=== PATIENT | male | born 1970 | race Caucasian/White ===

== ENCOUNTER 2018-07-04 14:11 | Emergency (ER) | payer OTHER ==
[2018-07-04 15:54] VITALS: BP 151/90
[2018-07-04] MEDS ORDERED: Lidocaine 1%* 5 ML VIAL INJ ONE (16:05)
[2018-07-04] MEDS ORDERED: Tetan/Diph/Pertus SYR(Tdap)* 0.5 ML SYR(BOOSTRIX) use SYR IM ONE (16:07)
--- NOTE | 2018-07-04 16:11 | UC ---
Skin Complaint HPI - HPI Summary HPI Summary: 48-year-old male comes in with a chief complaint of laceration of the right hand. This happened today just prior to arrival at work. Patient was using a utility knife trying to cut something he slipped and poked through his gloves into his right hand in the webbing between the thumb and first finger. He is able stop the bleeding with direct pressure. He is not up-to-date on his tetanus shot. He has no weakness or numbness. He has full range of motion of the hand. - History of Current Complaint Chief Complaint: UCLaceration Time Seen by Provider: 07/04/18 16:01 Stated Complaint: WC - RIGHT HAND LACERACTION Pain Intensity: 0 - Allergy/Home Medications Allergies/Adverse Reactions: Allergies Allergy/AdvReac Type Severity Reaction Status Date / Time No Known Allergies Allergy Verified 07/04/18 15:49 PMH/Surg Hx/FS Hx/Imm Hx Previously Healthy: Yes - Surgical History Surgical History: Yes Surgery Procedure, Year, and Place: right elbow repair - Family History Known Family History: Positive: Non-Contributory - Social History Alcohol Use: Weekly Substance Use Type: None Smoking Status (MU): Current Some Day Smoker - Immunization History Most Recent Tetanus Shot: unkknown Review of Systems All Other Systems Reviewed And Are Negative: Yes Constitutional: Positive: Negative Skin: Positive: Other - see hpi Eyes: Positive: Negative ENT: Positive: Negative Respiratory: Positive: Negative Cardiovascular: Positive: Negative Gastrointestinal: Positive: Negative Motor: Positive: Negative Neurovascular: Positive: Negative Musculoskeletal: Positive: Negative Neurological: Positive: Negative Psychological: Positive: Negative Is Patient Immunocompromised?: No Physical Exam Triage Information Reviewed: Yes Appearance: Well-Appearing, No Pain Distress, Well-Nourished Vital Signs: Initial Vital Signs Temp 98.0 F 07/04/18 15:49 Pulse 87 07/04/18 15:49 Resp 16 07/04/18 15:49 BP 151/90 07/04/18 15:49 Pulse Ox 99 07/04/18 15:49 Vital Signs Reviewed: Yes Eye Exam: Normal Eyes: Positive: Conjunctiva Clear Neck: Positive: Supple Respiratory: Positive: No respiratory distress Musculoskeletal Exam: Normal Musculoskeletal: Positive: Strength Intact, ROM Intact Neurological Exam: Normal Neurological: Positive: Alert, Muscle Tone Normal Psychological Exam: Normal Psychological: Positive: Age Appropriate Behavior Skin: Positive: Other - 1.5cm sc laceration rt hand palmar surface between the thumb and index finger. NL cap refill/rom, no sensation deficit. Strength 5/5. Laceration Repair - Laceration Repair 1 Procedure Summary: RT PALM Description: Linear Laceration Size After Repair: Length (cm) - 1.5CM Modified For Repair: No Type Injection: Local Anesthesia Used: 1.0% Lido Cleansing Completed Via Routine Prep: Yes Irrigation With Pressure Irrigation Device: No Closure Material: Sutures Closure Method: Single Layer - #5 Suture Of: Skin Suture Type: Prolene - 5-0 Course/Dx - Course Course Of Treatment: TDAP GIVEN IN CLINIC - Diagnoses Provider Diagnosis: Laceration of right hand Discharge - Sign-Out/Discharge Documenting (check all that apply): Patient Departure All imaging exams completed and their final reports reviewed: No Studies - Discharge Plan Condition: Stable Disposition: HOME Prescriptions: Cephalexin CAP* [Keflex CAP*] 500 mg PO TID #21 cap Patient Education Materials: Care For Your Stitches (ED), Laceration (ED) Referrals: David WU,Dru Olivas [Primary Care Provider] - Additional Instructions: FOLLOW UP WITH YOUR DOCTOR IF NOT COMPLETELY IMPROVED. SUTURES OUT IN 8-10 DAYS. GET REEVALUATED SOONER FOR WORSENING OF YOUR CONDITION; SIGNS OF INFECTION OR QUESTIONS OR CONCERNS. - Billing Disposition and Condition Condition: STABLE Disposition: Home
== END 2018-07-04 17:30 | disposition home or self-care (01) ==
LOC: UCCORT 14:11
DX: S61.411A Laceration without foreign body of right hand, initial encounter (principal); W26.0XXA Contact with knife, initial encounter; Y92.9 Unspecified place or not applicable
CPT/HCPCS: 12001; 90471; 90715; 99202; G0463

== ENCOUNTER 2018-07-15 07:11 | Emergency (ER) | payer OTHER ==
--- NOTE | 2018-07-15 07:40 | UC ---
HPI Wound/Suture Re-check - HPI Summary HPI Summary: here for suture removal suture removal from right hand cut his right hand 11 days ago with a sharp knife had [address] here at [facility] Esau has no complaints, the wound is healing well - History Of Current Complaint Chief Complaint: UCLaceration Stated Complaint: WC - STITCHES REMOVAL (DONE HERE) Time Seen by Provider: 07/15/18 07:27 Hx Obtained From: Patient Onset/Duration: Sudden Onset, Lasting Days - 11, Still Present Severity: Moderate Pain Intensity: 0 Procedure Type: suture removal Surgery Date: 07/04/18 - Allergies/Home Medications Allergies/Adverse Reactions: Allergies Allergy/AdvReac Type Severity Reaction Status Date / Time No Known Allergies Allergy Verified 07/15/18 07:27 Home Medications: Home Medications NK [No Home Medications Reported] 07/15/18 [History Confirmed 07/15/18] PMH/Surg Hx/FS Hx/Imm Hx Previously Healthy: Yes - Surgical History Surgical History: Yes Surgery Procedure, Year, and Place: right elbow repair - Family History Known Family History: Positive: Non-Contributory Negative: Diabetes - Social History Alcohol Use: Occasionally Substance Use Type: None Smoking Status (MU): Never Smoked Tobacco Type: Smokeless Tobacco - Immunization History Most Recent Tetanus Shot: unkknown Review of Systems All Other Systems Reviewed And Are Negative: Yes Constitutional: Positive: Negative Skin: Positive: Negative Eyes: Positive: Negative ENT: Positive: Negative Respiratory: Positive: Negative Is Patient Immunocompromised?: No Physical Exam Triage Information Reviewed: Yes Appearance: Well-Appearing, No Pain Distress, Well-Nourished Vital Signs: Initial Vital Signs Temp 97.1 F 07/15/18 07:28 Pulse 90 07/15/18 07:28 Resp 16 07/15/18 07:28 BP 154/88 07/15/18 07:28 Pulse Ox 99 07/15/18 07:28 Vital Signs Reviewed: Yes Eye Exam: Normal Eyes: Positive: Conjunctiva Clear ENT: Positive: Normal ENT inspection, Hearing grossly normal, Pharynx normal Neck: Positive: Supple, Nontender, No Lymphadenopathy Respiratory: Positive: Chest non-tender, Lungs clear, Normal breath sounds Cardiovascular: Positive: RRR, No Murmur, Pulses Normal Skin: Positive: Other - 1 cm laceration right hand 5 sutures intact , laceration is healing well , no erythema, no swelling, no discharge, no tenderness, 5 sutures were removed Course/Dx - Course Course Of Treatment: elevated bp : monitor your bp daily follow up with your pcp in one week - Diagnosis Provider Diagnosis: Visit for suture removal, Elevated BP without diagnosis of hypertension Discharge - Sign-Out/Discharge Documenting (check all that apply): Patient Departure All imaging exams completed and their final reports reviewed: No Studies - Discharge Plan Condition: Stable Disposition: HOME Patient Education Materials: Stitches Removal (ED) Referrals: David WU,Dru Olivas [Primary Care Provider] - If Needed - Billing Disposition and Condition Condition: STABLE Disposition: Home
[2018-07-15 08:29] VITALS: BP 154/88
== END 2018-07-15 07:42 | disposition home or self-care (01) ==
LOC: UCCORT 07:11
DX: S61.411D Laceration without foreign body of right hand, subsequent encounter (principal); W26.0XXD Contact with knife, subsequent encounter; R03.0 Elevated blood-pressure reading, without diagnosis of hypertension